=== PATIENT | male | born 1955 | race Caucasian/White ===

== ENCOUNTER 2017-11-10 23:13 | Inpatient (IN) | payer MEDICARE ==
[~2017-11-10] VITALS: Ht 180.3 cm; Wt 97.5 kg
--- NOTE | ~2017-11-10 | CON ---
[place], [place] REPORT OF CONSULTATION [id number] UNIT #: [id number] ROOM: 425 DOCTOR: YASMINE DE OLIVEIRA MD BIRTHDATE: [birth year] DOS: 11/11/2017 REASON FOR CONSULTATION: Hyponatremia. HISTORY OF PRESENT ILLNESS: This patient is a 62-year-old male with past medical history of hypertension, hyperlipidemia and apparent schizophrenia. He was admitted to the hospital where he presented with shortness of breath, body aches, chest tightness as well as constipation. He reported an episode of vomiting and has had loose stools due to excessive laxatives taken. He denied any fevers or chills. In the Emergency Room, a chest x-ray showed questionable pneumonia. Rapid flu was positive for influenza A. He was started on Tamiflu, neb treatments and antibiotics and admitted. The patient had routine labs drawn, which showed a sodium level of 130. Labs today noted sodium of 128. It seems he did receive some normal saline. The patient is unaware of having problems with chronic hyponatremia. I did look at labs over the past few years and he has had lower levels of sodium at baseline. He does admit to drinking a lot of fluids. It does not appear he is on any diuretics, particularly thiazides. He states his appetite has been poor lately. ALLERGIES: No known drug allergies. HOME MEDICATIONS: Included Norvasc, aspirin, bupropion, clonidine, hydromorphone, lisinopril, lorazepam, multivitamin, Aleve, Lyrica, fish oil. PAST MEDICAL HISTORY: 1. Chronic neck pain. 2. Hypertension. 3. Hyperlipidemia. 4. Schizophrenia. 5. History of back surgery. 6. History of neck surgery. 7. What appears to be mild chronic hyponatremia. FAMILY HISTORY: Negative for chronic kidney disease or electrolyte disorders, otherwise noncontributory. SOCIAL HISTORY: No reports of alcohol or illicit drugs. He does have history of tobacco abuse, but stopped about a month ago, but seems he has been smoking 2 packs a day since the age of 20. REVIEW OF SYSTEMS: As per HPI, otherwise a 10-point review of systems was reviewed and was negative. PHYSICAL EXAMINATION: VITAL SIGNS: Temperature 99.4, pulse 103, respiration rate 18, blood pressure 134/81. HEENT AND NECK: Shows no JVD. LUNGS: Had bilateral rhonchi. There was no tactile fremitus. He was not using accessory muscles of respiration. HEART: Normal S1, S2. No rub, thrill or gallop. [place], [place] REPORT OF CONSULTATION NAME: ATTILA GARCIA UNIT #: [id number] ROOM: 425 DOCTOR: YASMINE DE OLIVEIRA MD BIRTHDATE: [birth year] ABDOMEN: Soft, nontender. There is organomegaly, rigidity, rebound or guarding. There is no CVA tenderness. EXTREMITIES: Showed no edema. There was no lower extremity lymphadenopathy. Distal pulses were 2+. SKIN: Showed no overt rash. There was no petechia or purpura. Skin temperature was warm. NEUROLOGIC: He is awake, alert and following commands. Cranial nerves are intact. LABORATORY DATA: Hemoglobin 13.8, white count of 10.4, platelets 226. Glucose 185, BUN 9, creatinine 0.98, sodium 128, potassium 3.4, CO2 of 29, phosphorus 2.6. TSH 0.751. IMPRESSION: 1. Hyponatremia, which seems to be somewhat chronic in nature. The etiology is not clear. I suspect the possibility of syndrome of inappropriate antidiuretic hormone, which may be related to chronic NSAID usage. There may be a slight acute element due to poor oral intake and questionable vomiting and diarrhea. 2. Apparent influenza A positive/pneumonia. 3. History of chronic pain. 4. History of schizophrenia. 5. Hypertension. PLAN: 1. Would place the patient on an oral fluid restriction for now. Would recommend 2-2.5 liters per day. 2. Try to increase protein intake and ____. 3. Avoid using thiazide diuretics. 4. Would obtain urine electrolytes including urine sodium and urine osmolality if they have not been ordered yet. 5. Would obtain an a.m. cortisol level. The patient did have TSH that seemed to be within normal limits. 6. Depending on his urine chemistries can consider more fluid with normal saline. 7. There does not appear to be any need for hypertonic saline at this time. Thank you for this consultation. We will follow with you. YASMINE DE OLIVEIRA MD CM:CONSTR:REPORT OF CONSULTATION 1602 11/11/17 1931 interface
[2017-11-10 02:37] VITALS: BP 134/81
[~2017-11-10 23:13] MED LIST: ALEVE220 M1 PO; AMLODIPINE BESYL5 MG PO; AMLODIPINE10 MG PO; AUGMENTIN 875875 MG PO; FISH OIL 1,2001 EAC4 PO; LISINOPRIL AND1 TAB; LISINOPRIL AND1 TAB PO; LORAZEPAM2 MG PO; LYRICA100 M1 PO; MULTI VITAMINS1 TAB PO; TYLENOL PM EX-1 EACH PO; VICODIN 5-3001 EACH PO; [UNRECOGNIZED DRUG - CODE] DEVI
[2017-11-10 23:26] VITALS: BP 145/72
[2017-11-11] LABS: HEMATOCRIT 40.9 % (42.0-52.0); HEMOGLOBIN 14.3 g/dl (14.0-18.0); MEAN CELL VOLUME 91.3 fl (80.0-94.0); MEAN CORPUSCULAR HGB 31.9 pg (27.0-31.0); MEAN PLATELET VOLUME 9.1 fl (9.6-12.3); PLATELET COUNT AUTOMATED 227 10*3/uL (130-400); RED BLOOD COUNT 4.48 10*6/uL (4.50-5.90); RED CELL DISTRI WIDTH 11.9 % (0-14.5); WHITE BLOOD COUNT 9.3 10*3/uL (4.8-10.8)
[2017-11-11 00:19] LABS: ALBUMIN 4.1 gm/dl (3.1-4.5); ALKALINE PHOSPHATASE 52 U/L (45-117); BUN 9 mg/dl (7-24); CHLORIDE 90 mmol/L (98-107); POTASSIUM 3.5 mmol/L (3.5-5.1); SGOT/AST 19 IU/L (3-35); SGPT/ALT 26 U/L (12-78); SODIUM 130 mmol/L (136-145); TOTAL PROTEIN 8.4 gm/dL (6.4-8.2)
[2017-11-11 00:20] LABS: ATYPICAL LYMPHS 1 % (0-0); PLATELET SUFFICIENCY NORMAL (NORMAL); TOTAL CELLS COUNTED 100 #CELLS
[2017-11-11 00:21] LABS: TROPONIN I < 0.015 ng/ml (<0.045)
[2017-11-11] MEDS ORDERED: AMLODIPINE BESY10 MG PO (01:48)
[2017-11-11] MEDS ORDERED: CLONIDINE HCL0.1 MG PO (01:49)
[2017-11-11] MEDS ORDERED: LISINOPRIL20 MG PO (01:49)
[2017-11-11] MEDS ORDERED: LYRICA150 M1 PO (01:50)
[2017-11-11] MEDS ORDERED: ASPIRIN81 M1 PO (01:50)
[2017-11-11] MEDS ORDERED: BUPROPION ER100 M1 PO (01:51)
[2017-11-11 01:57] VITALS: BP 110/59
[2017-11-11 03:14] LABS: BASO # 0.1 10*3/uL (0.0-0.1); BASO % 0.5 % (0.0-1.0); EOS % 0.1 % (1.0-4.0); HEMATOCRIT 39.8 % (42.0-52.0); HEMOGLOBIN 13.8 g/dl (14.0-18.0); LYMPH # 0.7 10*3/uL (1.3-4.4); LYMPH % 7.1 % (27.0-41.0); MEAN CELL VOLUME 91.9 fl (80.0-94.0); MEAN CORPUSCULAR HGB 31.9 pg (27.0-31.0); MEAN CORPUSCULAR HGB CONC 34.7 g/dl (33.0-37.0); MEAN PLATELET VOLUME 9.1 fl (9.6-12.3); MONO # 1.1 10*3/uL (0.1-1.0); MONO % 10.2 % (3.0-9.0); NEUT # 8.5 10*3/uL (2.3-7.9); NEUT % 81.6 % (47.0-73.0); PLATELET COUNT AUTOMATED 226 10*3/uL (130-400); RED BLOOD COUNT 4.33 10*6/uL (4.50-5.90); RED CELL DISTRI WIDTH 11.9 % (0-14.5); WHITE BLOOD COUNT 10.4 10*3/uL (4.8-10.8)
[2017-11-11 03:25] LABS: BUN 9 mg/dl (7-24); CHLORIDE 89 mmol/L (98-107); CREATININE 0.98 mg/dL (0.70-1.30); POTASSIUM 3.4 mmol/L (3.5-5.1); SODIUM 128 mmol/L (136-145)
[2017-11-11 03:30] LABS: CHOLESTEROL 112 mg/dL (<200); HDL CHOLESTEROL 33 mg/dl (40-60); LDL CHOLESTEROL 64 mg/dL (9-159); PHOSPHOROUS 2.6 mg/dL (2.5-4.9); TRIGLYCERIDES 74 mg/dl (<150); VLDL CHOLESTEROL 15 mg/dL (6-40)
[2017-11-11 03:36] LABS: THYROID STIM HORMONE (HS) 0.751 uIU/ml (0.358-4.75)
[2017-11-11 04:00] VITALS: BP 116/78
[2017-11-11 08:00] VITALS: BP 117/58
[2017-11-11 16:00] VITALS: BP 168/81
[2017-11-11 20:00] VITALS: BP 134/68
[2017-11-12] VITALS: BP 91/61
[2017-11-12 04:40] VITALS: BP 155/74
[2017-11-12 06:53] LABS: BASO % 0.1 % (0.0-1.0); EOS % 0.1 % (1.0-4.0); HEMATOCRIT 37.1 % (42.0-52.0); HEMOGLOBIN 12.8 g/dl (14.0-18.0); LYMPH % 6.7 % (27.0-41.0); MEAN CELL VOLUME 92.5 fl (80.0-94.0); MEAN CORPUSCULAR HGB 31.9 pg (27.0-31.0); MEAN CORPUSCULAR HGB CONC 34.5 g/dl (33.0-37.0); MEAN PLATELET VOLUME 9.7 fl (9.6-12.3); MONO # 1.2 10*3/uL (0.1-1.0); MONO % 7.6 % (3.0-9.0); NEUT # 13.1 10*3/uL (2.3-7.9); PLATELET COUNT AUTOMATED 280 10*3/uL (130-400); RED BLOOD COUNT 4.01 10*6/uL (4.50-5.90); RED CELL DISTRI WIDTH 12.2 % (0-14.5); WHITE BLOOD COUNT 15.4 10*3/uL (4.8-10.8)
[2017-11-12 07:09] LABS: ALBUMIN 3.4 gm/dl (3.1-4.5); ALKALINE PHOSPHATASE 47 U/L (45-117); BUN 13 mg/dl (7-24); CHLORIDE 94 mmol/L (98-107); CREATININE 0.88 mg/dL (0.70-1.30); POTASSIUM 3.7 mmol/L (3.5-5.1); SGOT/AST 13 IU/L (3-35); SGPT/ALT 25 U/L (12-78); SODIUM 132 mmol/L (136-145); TOTAL PROTEIN 7.5 gm/dL (6.4-8.2)
[2017-11-12 08:00] VITALS: BP 128/59
[2017-11-12 12:00] VITALS: BP 122/62
[2017-11-12 15:03] LABS: URINE CHLORIDE, RANDOM < 10 mmol/L
[2017-11-12] MEDS ORDERED: HYDR25T PO (15:15)
[2017-11-12 16:00] VITALS: BP 157/61
[2017-11-12 20:00] VITALS: BP 119/68
[2017-11-13] VITALS: BP 119/62
[2017-11-13 06:51] LABS: BASO % 0.1 % (0.0-1.0); HEMATOCRIT 40.6 % (42.0-52.0); LYMPH # 1.3 10*3/uL (1.3-4.4); LYMPH % 7.9 % (27.0-41.0); MEAN CELL VOLUME 93.1 fl (80.0-94.0); MEAN CORPUSCULAR HGB 32.1 pg (27.0-31.0); MEAN CORPUSCULAR HGB CONC 34.5 g/dl (33.0-37.0); MEAN PLATELET VOLUME 9.5 fl (9.6-12.3); MONO # 0.8 10*3/uL (0.1-1.0); MONO % 4.7 % (3.0-9.0); NEUT # 14.1 10*3/uL (2.3-7.9); NEUT % 86.5 % (47.0-73.0); PLATELET COUNT AUTOMATED 308 10*3/uL (130-400); RED BLOOD COUNT 4.36 10*6/uL (4.50-5.90); RED CELL DISTRI WIDTH 12.3 % (0-14.5); WHITE BLOOD COUNT 16.3 10*3/uL (4.8-10.8)
[2017-11-13 07:05] LABS: ALBUMIN 3.8 gm/dl (3.1-4.5); BUN 15 mg/dl (7-24); CHLORIDE 96 mmol/L (98-107); CREATININE 0.91 mg/dL (0.70-1.30); POTASSIUM 3.8 mmol/L (3.5-5.1); SGOT/AST 16 IU/L (3-35); SGPT/ALT 36 U/L (12-78); SODIUM 133 mmol/L (136-145)
[2017-11-13 07:07] LABS: ALKALINE PHOSPHATASE 48 U/L (45-117); TOTAL PROTEIN 8.1 gm/dL (6.4-8.2)
[2017-11-13 07:40] VITALS: BP 126/82
[2017-11-13 11:54] VITALS: BP 152/79
[2017-11-13 16:00] VITALS: BP 130/80
[2017-11-13 20:00] VITALS: BP 132/80
[2017-11-14] VITALS: BP 117/72
[2017-11-14 07:05] LABS: BUN 14 mg/dl (7-24); CHLORIDE 98 mmol/L (98-107); POTASSIUM 3.6 mmol/L (3.5-5.1); SODIUM 132 mmol/L (136-145)
[2017-11-14 07:40] VITALS: BP 130/88
[2017-11-14] MEDS ORDERED: DOXYCYCLINE100 M3 PO (10:25)
[2017-11-14] MEDS ORDERED: PREDNISONE10 MG PO (10:25)
[2017-11-14] MEDS ORDERED: K-TAB10 MEQ PO (10:27)
[2017-11-14] MEDS ORDERED: TAMIFLU 75MG CA75 MG PO (10:27)
== END 2017-11-14 10:58 | disposition home or self-care (01) | DRG 871 ==
LOC: ED 23:13 → 4E 11-11 01:28 → EDHOLD 11-11 01:28 → 4E 11-11 01:37
PROVIDERS: Emergency Medicine Emergency Medical Services; Family Medicine; Internal Medicine; Student in an Organized Health Care Education/Training Program
DX: A41.9 Sepsis, unspecified organism (principal); J18.1 Lobar pneumonia, unspecified organism; E87.8 Other disorders of electrolyte and fluid balance, not elsewhere classified; E87.1 Hypo-osmolality and hyponatremia; R65.20 Severe sepsis without septic shock; E87.6 Hypokalemia; M54.2 Cervicalgia; J10.1 Influenza due to other identified influenza virus with other respiratory manifestations; F20.9 Schizophrenia, unspecified; G89.29 Other chronic pain; E66.09 Other obesity due to excess calories; I10 Essential (primary) hypertension; D64.9 Anemia, unspecified; F17.210 Nicotine dependence, cigarettes, uncomplicated; J20.9 Acute bronchitis, unspecified; Z79.1 Long term (current) use of non-steroidal anti-inflammatories (NSAID); Z68.30 Body mass index [BMI] 30.0-30.9, adult; Z79.82 Long term (current) use of aspirin; Z82.49 Family history of ischemic heart disease and other diseases of the circulatory system; Z79.899 Other long term (current) drug therapy; Z68.29 Body mass index [BMI] 29.0-29.9, adult

== ENCOUNTER 2017-12-31 19:38 | Emergency (ER) | payer MEDICARE ==
[~2017-12-31] VITALS: Ht 180.3 cm; Wt 102.1 kg
[~2017-12-31 19:38] MED LIST changes: +AMLODIPINE BESY10 MG PO; +ASPIRIN81 M1 PO; +BUPROPION ER100 M1 PO; +CLONIDINE HCL0.1 MG PO; +DOXYCYCLINE100 M3 PO; +HYDR25T PO; +K-TAB10 MEQ PO; +LISINOPRIL20 MG PO; +LYRICA150 M1 PO; +PREDNISONE10 MG PO; +TAMIFLU 75MG CA75 MG PO
[2017-12-31 20:22] LABS: BASO # 0.1 10*3/uL (0.0-0.1); BASO % 0.7 % (0.0-1.0); EOS # 0.2 10*3/uL (0.0-0.4); EOS % 2.3 % (1.0-4.0); HEMATOCRIT 44.8 % (42.0-52.0); HEMOGLOBIN 15.5 g/dl (14.0-18.0); LYMPH # 2.3 10*3/uL (1.3-4.4); MEAN CELL VOLUME 88.7 fl (80.0-94.0); MEAN CORPUSCULAR HGB 30.7 pg (27.0-31.0); MEAN CORPUSCULAR HGB CONC 34.6 g/dl (33.0-37.0); MEAN PLATELET VOLUME 8.7 fl (9.6-12.3); MONO # 1.3 10*3/uL (0.1-1.0); MONO % 12.8 % (3.0-9.0); NEUT % 60.7 % (47.0-73.0); PLATELET COUNT AUTOMATED 392 10*3/uL (130-400); RED BLOOD COUNT 5.05 10*6/uL (4.50-5.90); RED CELL DISTRI WIDTH 13.2 % (0-14.5); WHITE BLOOD COUNT 9.9 10*3/uL (4.8-10.8)
[2017-12-31 20:36] LABS: ALBUMIN 4.1 gm/dl (3.1-4.5); ALKALINE PHOSPHATASE 57 U/L (45-117); BUN 26 mg/dl (7-24); CHLORIDE 98 mmol/L (98-107); LIPASE 152 U/L (73-393); POTASSIUM 3.8 mmol/L (3.5-5.1); SGOT/AST 8 IU/L (3-35); SGPT/ALT 19 U/L (12-78); SODIUM 132 mmol/L (136-145); TOTAL PROTEIN 8.9 gm/dL (6.4-8.2)
[2017-12-31 20:48] VITALS: BP 108/53
[2017-12-31] MEDS ORDERED: Zofran4 MG SL (21:34)
== END 2017-12-31 21:35 | disposition home or self-care (01) ==
LOC: ED 19:38
PROVIDERS: Nurse Practitioner Family
DX: K52.9 Noninfective gastroenteritis and colitis, unspecified (principal); E66.9 Obesity, unspecified; I10 Essential (primary) hypertension; G89.29 Other chronic pain; E78.00 Pure hypercholesterolemia, unspecified; Z79.82 Long term (current) use of aspirin; Z87.891 Personal history of nicotine dependence; Z98.890 Other specified postprocedural states; Z79.899 Other long term (current) drug therapy

== ENCOUNTER → 2019-03-11 | Outpatient (CLI) | payer MEDICARE ==
[~2019-03-11] MED LIST changes: +Zofran4 MG SL
== END | disposition home or self-care (01) ==
LOC: ORTHO 00:06
DX: M17.0 Bilateral primary osteoarthritis of knee (principal)

== ENCOUNTER → 2021-12-16 | Outpatient (CLI) | payer OTHER | END | disposition home or self-care (01) | LOC: RAD 14:06 | PROVIDERS: ATTEND Anesthesiology Pain Medicine | DX: M19.011 Primary osteoarthritis, right shoulder (principal) ==

== ENCOUNTER 2024-07-31 21:16 | Emergency (ER) | payer OTHER ==
[~2024-07-31] VITALS: Ht 180.3 cm; Wt 99.8 kg
[2024-07-31 21:20] VITALS: BP 150/76
[2024-07-31] MEDS ORDERED: LINZESS290 MC1 PO (21:28)
[2024-07-31] MEDS ORDERED: NEVIRAPINE PO (21:28)
[2024-07-31 22:26] LABS: HEMATOCRIT 39.2 % (42.0-52.0); MEAN CELL VOLUME 85.8 fl (80.0-94.0); MEAN CORPUSCULAR HGB 30.6 pg (27.0-31.0); MEAN CORPUSCULAR HGB CONC 35.7 g/dl (33.0-37.0); MEAN PLATELET VOLUME 8.5 fl (9.6-12.3); PLATELET COUNT AUTOMATED 379 10*3/uL (130-400); RED BLOOD COUNT 4.57 10*6/uL (4.50-5.90); WHITE BLOOD COUNT 11.2 10*3/uL (4.8-10.8)
[2024-07-31 22:28] LABS: MANUAL DIFF REFLEX YES
[2024-07-31 22:47] LABS: ALKALINE PHOSPHATASE 120 U/L (46-116); BUN 14 mg/dl (9-23); CHLORIDE 97 mmol/L (98-107); POTASSIUM 3.7 mmol/L (3.4-5.1); SGPT/ALT 23 U/L (5-49); TOTAL PROTEIN 7.2 gm/dL (6.0-8.0)
[2024-07-31 22:48] LABS: ATYPICAL LYMPHS 1 % (0-0); PLATELET SUFFICIENCY NORMAL (NORMAL); TOTAL CELLS COUNTED 100 #CELLS
[2024-07-31 22:49] LABS: OVALOCYTES FEW
[2024-07-31 22:50] LABS: BURR CELLS FEW
[2024-07-31] MEDS ORDERED: Promethazine Hydrochloride 25 MG/ML VIAL IM ONE (23:10)
[2024-07-31] MEDS ORDERED: MEPERIDINE HYDROCHLORIDE 25 MG/1 ML VIAL IM ONE (23:10)
== END 2024-08-01 00:08 | disposition home or self-care (01) ==
LOC: ED 21:16
PROVIDERS: Internal Medicine
DX: F11.23 Opioid dependence with withdrawal (principal); E87.1 Hypo-osmolality and hyponatremia; I10 Essential (primary) hypertension; F41.9 Anxiety disorder, unspecified; J44.9 Chronic obstructive pulmonary disease, unspecified; Z98.890 Other specified postprocedural states; Z90.89 Acquired absence of other organs; Z87.891 Personal history of nicotine dependence

== ENCOUNTER 2025-02-08 02:17 | Emergency (ER) | payer OTHER ==
[~2025-02-08] VITALS: Ht 182.8 cm; Wt 90.7 kg
[~2025-02-08 02:17] MED LIST changes: +LINZESS290 MC1 PO; +NEVIRAPINE PO
[2025-02-08 02:31] VITALS: BP 180/79
[2025-02-08] MEDS ORDERED: HYDROXYZINE HCL25 MG PO (02:38)
[2025-02-08] MEDS ORDERED: ATORVASTATIN CA80 M1 PO (02:38)
[2025-02-08] MEDS ORDERED: BUPRENORPHINE-1 EAC2 SL (02:38)
[2025-02-08] MEDS ORDERED: SILENOR3 M1 PO ×2 (02:49→10:20)
== END 2025-02-08 03:02 | disposition home or self-care (01) ==
LOC: ED 02:17
DX: G47.00 Insomnia, unspecified (principal); F11.10 Opioid abuse, uncomplicated; Z79.899 Other long term (current) drug therapy; Z98.890 Other specified postprocedural states; Z87.891 Personal history of nicotine dependence